=== PATIENT | female | born 2000 | race African-American/Black ===

== ENCOUNTER 2020-11-21 03:45 | Emergency (ER) | payer MEDICAID ==
[~2020-11-21] VITALS: Ht 167.6 cm; Wt 59.0 kg
[2020-11-21] MEDS ORDERED: BACITRACIN ZINC OINT UDPKT TOP ONE (04:15)
[2020-11-21] MEDS ORDERED: LIDOCAINE HCL/EPINEPHRINE 1%-EPI 1:100,000 20 ML VIAL INFIL ONE (04:15)
[2020-11-21] MEDS ORDERED: HYDROCODONE/ACETAMINOPHEN 5/325MG TABLET PO ONE (04:15)
[2020-11-21 05:25] VITALS: BP 121/69
== END 2020-11-21 05:39 | disposition home or self-care (01) ==
LOC: ER 03:45
DX: S61.412A Laceration without foreign body of left hand, initial encounter (principal); S51.811A Laceration without foreign body of right forearm, initial encounter; X99.1XXA Assault by knife, initial encounter; Y93.89 Activity, other specified; Y92.488 Other paved roadways as the place of occurrence of the external cause
CPT/HCPCS: 12005; 99284; A4217; J3490

== ENCOUNTER 2020-11-30 13:40 | Emergency (ER) | payer MEDICAID ==
[~2020-11-30] VITALS: Ht 167.6 cm; Wt 65.0 kg
[2020-11-30] MEDS ORDERED: IBUP-2029 MT (15:49)
[2020-11-30] MEDS ORDERED: AMOX-424 MT (15:49)
[2020-11-30] MEDS ORDERED: KETOROLAC 60MG/2ML VIAL IM ONE (16:00)
[2020-11-30 16:12] VITALS: BP 124/70
== END 2020-11-30 16:13 | disposition home or self-care (01) ==
LOC: ER 13:40
DX: L03.114 Cellulitis of left upper limb (principal)
CPT/HCPCS: 81025; 96372; 99283; J1885